=== PATIENT | male | born 1960 | race Native Hawaiian/Other Pacific Islander ===

== ENCOUNTER 2016-11-05 06:30 | Outpatient (CLI) | payer OTHER | END 2016-11-05 19:44 | disposition home or self-care (01) | LOC: LABW 06:30 | DX: R73.02 Impaired glucose tolerance (oral) (principal) | CPT/HCPCS: 36415; 82951; 82952; 83036 ==

== ENCOUNTER 2020-08-19 09:51 | Outpatient (CLI) | payer OTHER | END 2020-08-19 19:00 | disposition home or self-care (01) | LOC: LABW 09:51 | PROVIDERS: ATTEND Internal Medicine | DX: E29.1 Testicular hypofunction (principal) | CPT/HCPCS: 36415; 84402; 84403 ==

== ENCOUNTER 2022-01-14 12:48 | Outpatient (CLI) | payer OTHER | END 2022-01-14 19:25 | disposition home or self-care (01) | LOC: US 12:48 | PROVIDERS: ATTEND Internal Medicine | DX: R09.89 Other specified symptoms and signs involving the circulatory and respiratory systems (principal) ==

== ENCOUNTER 2022-01-22 08:07 | Outpatient (CLI) | payer OTHER ==
[2022-01-22 08:46] LABS: PLATELET COUNT 150 K/uL (142-355)
[2022-01-22 09:02] LABS: POTASSIUM 4.4 mmol/L (3.6-5.2)
== END 2022-01-22 20:33 | disposition home or self-care (01) ==
LOC: LABW 08:07
PROVIDERS: ATTEND Internal Medicine
DX: E11.9 Type 2 diabetes mellitus without complications (principal); E79.0 Hyperuricemia without signs of inflammatory arthritis and tophaceous disease; E03.8 Other specified hypothyroidism; I10 Essential (primary) hypertension; R82.998 Other abnormal findings in urine
CPT/HCPCS: 36415; 80053; 80061; 81002; 81015; 82043; 83036; 84439; 84443; 84550; 85027; 87088